=== PATIENT | male | born 1995 | race Two or more races ===

== ENCOUNTER 2025-06-08 07:18 | Inpatient (IN) | payer BC, MEDICAID ==
[2025-06-08] VITALS (7 sets, daily range): BP systolic 113–120; BP diastolic 73–84; PULSE 85–92; RESP 15–21; TEMP 36.5–37.0296; O2SAT 98–99
[~2025-06-08] VITALS: Ht 177.8 cm; Wt 88.0 kg
[2025-06-08 08:12] LABS: BASOPHILS % 0.6 % (0.0-2.0); EOSINOPHILS % 1.9 % (0.0-5.0); HEMATOCRIT. 42.7 % (42.0-52.0); HEMOGLOBIN. 14.7 g/dL (14.0-18.0); LYMPHOCYTES % 34.9 % (20.0-50.0); MEAN PLATELET VOLUME 10.1 fl (7.4-10.4); MONOCYTES % 7.8 % (2.0-8.0); NEUTROPHILS % 54.8 % (40.0-76.0); PLATELET 194 x1000/uL (130-400); RED BLOOD CELL COUNT 5.34 mill/uL (4.7-6.1); RED CELL DISTRIBUTION WIDTH 13.5 % (11.6-14.6)
[2025-06-08 08:34] LABS: CREATININE 0.9 mg/dL (0.6-1.3); UREA NITROGEN BLOOD 12 mg/dL (9-23)
[2025-06-08] MEDS ORDERED: MORPHINE SULFATE 2 MG/ML INJ (NOT FOR IM USE) IV PRN (09:30)
[2025-06-08] MEDS ORDERED: DEXT 5%/0.9% NACL 1,000 ML IV SCH (09:30)
[2025-06-08] MEDS ORDERED: ONDANSETRON HCL 4MG/2ML INJ IV PRN ×2 (09:30→13:00)
[2025-06-08] MEDS ORDERED: THROMBIN (BOVINE) 5000 UNITS/VIAL TOP ONE (09:31)
[2025-06-08] MEDS ORDERED: LIDOCAINE HCL/EPINEPHRINE 1%-EPI 1:100,000 20ML VIAL ONE (09:31)
[2025-06-08] MEDS ORDERED: GENTAMICIN SULF 40MG/ML 2ML VIAL ONE (09:31)
[2025-06-08] MEDS ORDERED: NALOXONE HCL 0.4MG/ML VIAL IV PRN (09:45)
[2025-06-08] MEDS ORDERED: HYDRALAZINE 20MG/ML VIAL IV PRN ×4 (09:45→13:00)
[2025-06-08] MEDS ORDERED: MORPHINE SULFATE 4 MG/ML INJ (FOR IV/IM USE) IV PRN (10:45)
[2025-06-08] MEDS ORDERED: ROCURONIUM BROMIDE 10MG/ML VIAL 5ML IV ONE (10:49)
[2025-06-08] MEDS ORDERED: DEXT 5%/LACTATED RINGERS 1,000 ML IV SCH (11:00)
[2025-06-08] MEDS ORDERED: FAMOTIDINE 20MG/2ML VIAL IV ONE (11:25)
[2025-06-08] MEDS ORDERED: ACETAMINOPHEN 1000MG/100ML 100 ML IV ONE (12:40)
[2025-06-08] MEDS ORDERED: MEPERIDINE HCL/PF 25MG/ML CPJ IV PRN (13:00)
[2025-06-08] MEDS ORDERED: FAMOTIDINE 20MG/2ML VIAL IV PRN (13:00)
[2025-06-08] MEDS ORDERED: HYDROMORPHONE HCL/PF 1MG/ML INJ IV PRN (13:00)
[2025-06-08] MEDS ORDERED: LABETALOL 5MG/ML 4ML INJ IV PRN (13:00)
[2025-06-08] MEDS ORDERED: ACETAMINOPHEN 1,000MG/100ML PREMIX IV PRN (13:00)
[2025-06-08] MEDS ORDERED: CEFAZOLIN 1000MG PREMIX 50 ML IV SCH (14:00)
[2025-06-08] MEDS ORDERED: CEFAZOLIN SODIUM 1000MG/VIAL IV SCH (14:00)
[2025-06-08] MEDS: HYDROCODONE/ACETAMINOPHEN 7.5/325MG TABLET PO PRN (18:44)
== END 2025-06-08 18:48 | disposition home or self-care (01) | DRG 519 ==
LOC: ER 07:18 → MICUSO 08:45 → EDBEDREQ 08:49 → 8EST 15:56
PROVIDERS: ADMIT Student in an Organized Health Care Education/Training Program; ATTEND Student in an Organized Health Care Education/Training Program
PROC: 0SB40ZZ Excision of Lumbosacral Disc, Open Approach (ICD-10-PCS; principal; 2025-06-08)
DX: M51.17 Intervertebral disc disorders with radiculopathy, lumbosacral region (principal); G82.20 Paraplegia, unspecified; G83.4 Cauda equina syndrome; M48.07 Spinal stenosis, lumbosacral region; G89.29 Other chronic pain; M51.16 Intervertebral disc disorders with radiculopathy, lumbar region; F17.200 Nicotine dependence, unspecified, uncomplicated; Z79.899 Other long term (current) drug therapy
CPT/HCPCS: 36415; 72100; 72148; 76000; 80048; 85025; 86850; 86900; 88304; 88311; 93970; 95925; 95926; 95928; 95929; 99285; A4606; J0690; J1308; J1580; J2004; J3490; J0131